=== PATIENT | male | born 1995 | race Caucasian/White ===

== ENCOUNTER 2018-01-06 21:11 | Emergency (ER) | payer SELFPAY ==
[2018-01-06 21:11] VITALS: BMI 19.5
[2018-01-06 22:23] VITALS: BP 132/78; PULSE 86; TEMP 97.8; O2SAT 100
[2018-01-06] MEDS ORDERED: Bacitracin 500 Units/gm Oint Foilpak UD ONE (23:01)
--- NOTE | 2018-01-06 23:13 | C.PDOC ---
History Of Present Illness 22yo male, comes to ER for evaluation of a laceration to his left 2nd digit. Patient states he was cutting vegetables while at work and injured himself. He states his tetanus vaccine is up to date. Otherwise, denies any weakness, numbness, and offers no additional medical complaint. Time Seen by Provider: 01/06/18 22:31 Chief Complaint (Nursing): Abnormal Skin Integrity History Per: Patient History/Exam Limitations: no limitations Onset/Duration Of Symptoms: Hrs Current Symptoms Are (Timing): Still Present Location Of Injury: Left: Hand (2nd digit) Additional History Per: Patient Past Medical History Reviewed: Historical Data, Nursing Documentation, Vital Signs Vital Signs: Last Vital Signs Temp 97.8 F 01/06/18 22:17 Pulse 86 01/06/18 22:17 Resp 20 01/06/18 23:28 BP 132/78 01/06/18 22:17 Pulse Ox 100 01/07/18 01:51 - Medical History PMH: No Chronic Diseases Surgical History: No Surg Hx - [facility] Procedures CLOSURE SKIN & SUBCUTANEOUS NEC (04/05/14) Family History: States: No Known Family Hx - Social History Hx Tobacco Use: No Hx Alcohol Use: No Hx Substance Use: Yes - Immunization History Hx Tetanus Toxoid Vaccination: Yes (2016) Hx Influenza Vaccination: Yes Hx Pneumococcal Vaccination: Yes Review Of Systems Musculoskeletal: Positive for: Hand Pain (laceration to left 2nd digit) Neurological: Negative for: Weakness, Numbness Physical Exam - Physical Exam Skin: Normal Color Extremity: Normal ROM (FROM of all digits on left hand), Capillary Refill (< 2 second), No Swelling, Other (small avulsion laceration noted to tip of left 2nd digit; no active bleeding noted.) Pulses: Left Radial: Normal, Right Radial: Normal Neurological/Psych: Oriented x3, Normal Motor, Normal Sensation ED Course And Treatment O2 Sat by Pulse Oximetry: 100 (RA) Pulse Ox Interpretation: Normal Progress Note: Wound irrigated with sterile water and betadine. Bacitracin applied and a sterile, non-adherent dressing applied. Patient instructed on wound care and informed to follow up with PMD/ Hand in 2-3 days. 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 - Scribe Statement The provider has reviewed the documentation as recorded by the Maxi Ross Provider Attestation: All medical record entries made by the Maxi were at my direction and personally dictated by me. I have reviewed the chart and agree that the record accurately reflects my personal performance of the history, physical exam, medical decision making, and the department course for this patient. I have also personally directed, reviewed, and agree with the discharge instructions and disposition.
[2018-01-06 23:29] VITALS: RESP 20
== END 2018-01-06 23:28 | disposition home or self-care (01) ==
LOC: C.ER 21:11
DX: S61.311A Laceration without foreign body of left index finger with damage to nail, initial encounter (principal); W45.8XXA Other foreign body or object entering through skin, initial encounter; Y92.89 Other specified places as the place of occurrence of the external cause; Y99.0 Civilian activity done for income or pay